=== PATIENT | female | born 1980 | race Caucasian/White ===

== ENCOUNTER 2020-01-12 17:20 | Emergency (ER) | payer OTHER ==
[~2020-01-12] VITALS: Ht 170.2 cm; Wt 102.5 kg
[2020-01-12 17:21] VITALS: BP 119/86
[2020-01-12] MEDS ORDERED: HYDROcodone-ACET 10/325MG TAB PO ONE (17:45)
== END 2020-01-12 18:23 | disposition home or self-care (01) ==
LOC: ER 17:21
DX: U07.1 COVID-19 (principal); M54.5 Low back pain; G89.29 Other chronic pain